=== PATIENT | male | born 1985 | race Caucasian/White ===

== ENCOUNTER 2017-09-06 09:29 | Emergency (ER) | payer SELFPAY ==
[2017-09-06 11:42] VITALS: BP 142/93
--- NOTE | 2017-09-06 11:54 | UC ---
Respiratory Complaint HPI - HPI Summary HPI Summary: Patient urgent care today with 2 days of worsening left ear pain and cough with wheeze - History of Current Complaint Chief Complaint: UCEar Stated Complaint: EAR PAIN, CHEST CONGESTION, COUGH Time Seen by Provider: 09/06/17 11:50 Hx Obtained From: Patient Onset/Duration: Sudden Onset, Lasting Days - 2, Still Present Timing: Constant Severity Initially: Mild Severity Currently: Mild Pain Intensity: 3 Pain Scale Used: 0-10 Numeric Aggravating Factors: Nothing Alleviating Factors: Nothing Associated Signs And Symptoms: Positive: URI, Nasal Congestion - Allergies/Home Medications Allergies/Adverse Reactions: Allergies Allergy/AdvReac Type Severity Reaction Status Date / Time No Known Allergies Allergy Verified 09/06/17 11:41 PMH/Surg Hx/FS Hx/Imm Hx Previously Healthy: Yes - Surgical History Surgical History: None - Family History Known Family History: Positive: None - Social History Occupation: Employed Full-time Lives: With Family Alcohol Use: Weekly Alcohol Amount: 2 times a week Substance Use Type: None Smoking Status (MU): Never Smoked Tobacco Review of Systems Constitutional: Negative Skin: Negative Eyes: Negative ENT: Sore Throat, Ear Ache, Nasal Discharge Respiratory: Cough - Her Cardiovascular: Negative Gastrointestinal: Negative Genitourinary: Negative Motor: Negative Neurovascular: Negative Musculoskeletal: Negative Neurological: Negative Psychological: Negative Is Patient Immunocompromised?: No All Other Systems Reviewed And Are Negative: Yes Physical Exam Triage Information Reviewed: Yes Appearance: Well-Appearing, No Pain Distress, Well-Nourished - Patient was necessarily mesentery with Vital Signs: Initial Vital Signs Temp 97.9 F 09/06/17 11:38 Pulse 88 09/06/17 11:38 Resp 14 09/06/17 11:38 BP 142/93 09/06/17 11:38 Pulse Ox 97 09/06/17 11:38 Vital Signs Reviewed: Yes Eye Exam: Normal Eyes: Positive: Conjunctiva Clear ENT Exam: Normal ENT: Positive: Normal ENT inspection, Hearing grossly normal, Pharynx normal, Nasal congestion, TMs normal - right, TM bulging - left. Negative: Trismus, Muffled voice, Hoarse voice - Day as, Sinus tenderness, Uvula midline Dental Exam: Normal Neck exam: Normal Neck: Positive: Supple, Nontender, No Lymphadenopathy Respiratory Exam: Other Respiratory: Positive: Chest non-tender, No respiratory distress, No accessory muscle use, Wheezing Cardiovascular Exam: Normal Cardiovascular: Positive: RRR, No Murmur, Pulses Normal, Brisk Capillary Refill Musculoskeletal Exam: Normal Musculoskeletal: Positive: Strength Intact, ROM Intact, No Edema Neurological Exam: Normal Neurological: Positive: Alert, Muscle Tone Normal Psychological Exam: Normal Skin Exam: Normal UC Diagnostic Evaluation - Laboratory O2 Sat by Pulse Oximetry: 97 Diagnostic Studies Comment: Influenza a and influenza B are negative, rapid strep is negative Respiratory Course/Dx - Course Course Of Treatment: We'll treat left ear infection with amoxicillin, the bronchospastic cough with wheeze with albuterol increase fluids Tylenol ibuprofen for pain follow up with PCP when necessary - Differential Dx/Diagnosis Provider Diagnoses: Elevated blood pressure without diagnosis of hypertension, Left otitis media, bronchospastic cough Discharge - Sign-Out/Discharge Documenting (check all that apply): Discharge - Discharge Plan Condition: Stable Disposition: HOME Prescriptions: Albuterol HFA INHALER* [Ventolin HFA Inhaler*] 2 puff INH Q4H PRN #1 mdi PRN Reason: cough and wheeze Amoxicillin PO (*) [Amoxicillin 875 MG (*)] 875 mg PO BID #20 tab Patient Education Materials: Ear Infection (ED), Hypertension (ED), Bronchospasm (ED) Referrals: Chandra Pelaez MD [Primary Care Provider] - 2 Weeks - Billing Disposition and Condition Condition: STABLE Disposition: HOME
== END 2017-09-06 12:43 | disposition home or self-care (01) ==
LOC: UCCORT 09:29
DX: H66.92 Otitis media, unspecified, left ear (principal); R05 Cough; R03.0 Elevated blood-pressure reading, without diagnosis of hypertension
CPT/HCPCS: 87502; 87651; 99212; G0463

== ENCOUNTER 2019-05-20 07:32 | Emergency (ER) | payer BC ==
[2019-05-20 07:45] VITALS: BP 139/96
--- NOTE | 2019-05-20 08:41 | UC ---
Ear Complaint HPI - HPI Summary HPI Summary: 33-year-old male comes in with a chief complaint of right posterior chest and right upper quadrant pain. Patient fell after slipping on the ice 2 days ago on May 18, 2019. Had immediate pain right posterior lower chest. Over time the pain has wrapped around the right side of the chest and into the right upper quadrant the abdomen. Patient has been taking ibuprofen which does help some with the pain. Pain is worse with any kind of movement or deep breath. Reports difficulty moving his bowels this morning. He reports it started abdominal because if he tries to strain to move his bowels or even to twist or turn it causes pain. Has not seen any blood in the stool or his urine. He has been able to eat. He has decreased appetite secondary to the pain. - History of Current Complaint Chief Complaint: UCBackPain Stated Complaint: BACK/RIB PAIN Time Seen by Provider: 05/20/19 07:59 Pain Intensity: 5 - Allergies/Home Medications Allergies/Adverse Reactions: Allergies Allergy/AdvReac Type Severity Reaction Status Date / Time No Known Allergies Allergy Verified 05/20/19 07:41 Home Medications: Home Medications Ibuprofen TAB* [Advil TAB*] 600 mg PO ONCE 05/20/19 [History Confirmed 05/20/19] PMH/Surg Hx/FS Hx/Imm Hx Previously Healthy: Yes - Surgical History Surgical History: None - Family History Known Family History: Positive: None - Social History Alcohol Use: Occasionally Alcohol Amount: 2 times a week Substance Use Type: None Smoking Status (MU): Never Smoked Tobacco Review of Systems All Other Systems Reviewed And Are Negative: Yes Constitutional: Positive: Negative Skin: Positive: Negative Eyes: Positive: Negative ENT: Positive: Negative Respiratory: Positive: Other - SEE HPI Cardiovascular: Positive: Chest Pain Gastrointestinal: Positive: Abdominal Pain, Other - SEE HPI Genitourinary: Positive: Negative Motor: Positive: Negative Neurovascular: Positive: Negative Musculoskeletal: Positive: Other: - SEE HPI Neurological: Positive: Negative Psychological: Positive: Negative Is Patient Immunocompromised?: No Physical Exam Triage Information Reviewed: Yes Appearance: Well-Appearing, Well-Nourished, Pain Distress - MILD WITH ROM AND EXAM Vital Signs: Initial Vital Signs Temp 97.4 F 05/20/19 07:42 Pulse 65 05/20/19 07:42 Resp 16 05/20/19 07:42 BP 139/96 05/20/19 07:42 Pulse Ox 100 05/20/19 07:42 Vital Signs Reviewed: Yes Eye Exam: Normal Eyes: Positive: Conjunctiva Clear ENT: Negative: Nasal drainage Neck: Positive: Supple Respiratory: Positive: Lungs clear, Normal breath sounds, No respiratory distress, Other: - Tender to palpation right posterior lower ribs and the tenderness wraps around on the same level of ribs on the right lateral aspect right anterior aspect. Cardiovascular: Positive: RRR Abdomen Description: Positive: Other: - Nontender to palpation left lower and right lower quadrants of the abdomen. Nontender palpation left upper quadrant of the abdomen. Patient is tender in the right upper quadrant and epigastrium which is mild tenderness and it's difficult to determine whether or not the palpation in the right upper quadrant epigastrium is causing pain in the ribs or the abdomen itself. Bowel Sounds: Positive: Present Musculoskeletal: Positive: Strength Intact Neurological: Positive: Alert Psychological: Positive: Age Appropriate Behavior Skin Exam: Normal Ear Complaint Course/Dx - Course Course Of Treatment: Invoice Classification Clerk: Chandra Curtis F ([id number]) Cold Food Packer: SAM ( SAM) Report Date: 05/20/2019 08:45:00 Report Status: Final ====== Start of Report Content Patient Name: SANTANA MAXWELL Medical Record#: [id number] Ordering Physician: Jacob Caro MD Acct.#: [id number] : 10/1985 Age: 33 Sex: M Location: [facility]RG[facility]ARE [facility] Exam Date: 05/20/19812 ADM Status: REG ER Order Information: US ABDOMEN LIMITED Accession Number: [id number] CPT: 15250 INDICATION: Right upper quadrant pain status post fall. COMPARISON: There are no relevant prior studies available for comparison. TECHNIQUE: Multiple real-time images of the abdomen in the right and left upper and lower quadrants to assess for ascites. Additional images were obtained of the liver. FINDINGS: No ascites is visualized. The liver is moderately enlarged spanning 20 cm in craniocaudad dimension and increased in echogenicity. No significant focal abnormality is seen. IMPRESSION: 1. NO EVIDENCE FOR ASCITES. 2. ENLARGED LIVER WITH INCREASED ECHOGENICITY SUGGESTIVE OF FATTY INFILTRATION. NO FOCAL ABNORMALITY IS SEEN. <Electronically signed by Chandra Curtis MD in OV> 05/20/19841 Dictated By: Chandra Curtis MD Dictated Date/Time: 05/20/19837 Transcribed Date/Time: 05/20/19837 Copy to: CC:Chandra Griffin Jr, MD; Jacob Caro MD Imaging - [facility] Imaging - [facility] [address] [place] [address] ph [phone] ph ) ph ([phone]) End of Report Content Invoice Classification Clerk: Chandra Curtis F, ([id number]) Cold Food Packer: SAM, ( NUANCE) Report Date: 05/20/2019 09:24:00 Report Status: Final ====== Start of Report Content Patient Name: SANTANA MAXWELL Medical Record#: [id number] Ordering Physician: Jacob Caro MD Acct.#: [id number] : 10/1985 Age: 33 Sex: M Location: [facility] Exam Date: 05/20/19807 ADM Status: REG ER Order Information: RIBS RT UNI W/PA CH MIN 3 VWS Accession Number: [id number] CPT: 31365 INDICATION: Right rib injury. COMPARISON: There are no relevant prior studies available for comparison. TECHNIQUE: 4 views of the right ribs and a PA view of the chest was obtained. FINDINGS: The ribs are in normal alignment. No fracture is seen. The heart is within normal limits in size. The lungs are clear. There is no evidence for pneumothorax or pleural effusion. IMPRESSION: NO EVIDENCE FOR FRACTURE. IF THE PATIENT'S SYMPTOMS PERSIST RECOMMEND FOLLOW-UP IMAGING. <Electronically signed by Chandra Curtis MD in OV> 05/20/19919 Dictated By: Chandra Curtis MD Dictated Date/Time: 915 Transcribed Date/Time: 05/20/19915 Copy to: CC:Chandra Griffin Jr, MD; Jacob Caro MD Imaging - [facility] Imaging [facility] [address] [address] ph [phone] ph ([phone]) ph ([phone]) End of Report Content ==== Urine did not show any blood. I discussed the x-rays and the ultrasound with the patient. Also discussed the possibility of abdominal trauma and the best way to evaluate that is with CT scan with IV contrast which we do not have access to here in clinic. Plan will be ibuprofen on a regular basis and then Flexeril as needed. Patient's sent home with incentive spirometer. We discussed that if the patient did not improve or if he worsened with shortness of breath or fevers signs of infection feeling lightheaded or spread of abdominal pain that he needed to get reevaluated right away in the emergency department. Otherwise the patient will follow-up his primary care physician. - Differential Dx/Diagnosis Provider Diagnosis: Rib pain on right side, Right upper quadrant abdominal pain Discharge ED - Sign-Out/Discharge Documenting (check all that apply): Patient Departure All imaging exams completed and their final reports reviewed: Yes - Discharge Plan Condition: Stable Disposition: HOME Prescriptions: Cyclobenzaprine TAB* [Flexeril 10 MG TAB*] 10 mg PO TID PRN #15 tab MDD 3 PRN Reason: Pain - Moderate Patient Education Materials: Rib Contusion (ED), Acute Abdominal Pain (ED) Referrals: Chandra Griffin MD [Primary Care Provider] - Additional Instructions: FOLLOW UP WITH YOUR DOCTOR. GO TO THE EMERGENCY DEPARTMENT IF NOT IMPROVING OR WORSE; PAIN, SHORTNESS OF BREATH, FEVER, SIGNS OF INFECTION, ABDOMINAL PAIN, YOU FEEL LIGHTHEADED, BLOOD IN YOUR URINE OR STOOL OR ANY QUESTIONS OR CONCERNS. USE THE INCENTIVE SPIROMETER EVERY 4 HOURS WHILE AWAKE TO HELP AVOID RESPIRATORY INFECTION - Billing Disposition and Condition Condition: STABLE Disposition: Home
== END 2019-05-20 09:48 | disposition home or self-care (01) ==
LOC: UCCORT 07:32
DX: R10.11 Right upper quadrant pain (principal); R07.81 Pleurodynia; R07.9 Chest pain, unspecified; R16.0 Hepatomegaly, not elsewhere classified
CPT/HCPCS: 76705; 81003; 99212; G0463

== ENCOUNTER 2019-08-04 07:07 | Emergency (ER) | payer BC ==
[2019-08-04 07:17] VITALS: BP 139/92
--- NOTE | 2019-08-04 07:24 | UC ---
Ear Complaint HPI - HPI Summary HPI Summary: 33 yo with 4 days of sinus congestion, subjective fever, nasal congestion and cough. Hx of otitis media with mild hearing loss. - History of Current Complaint Chief Complaint: UCRespiratory Stated Complaint: LT EAR PAIN Time Seen by Provider: 08/04/19 07:19 Hx Obtained From: Patient Onset/Duration: Gradual Onset, Lasting Days Severity Initially: Moderate Severity Currently: Moderate Pain Intensity: 4 Aggravating Factors: Nothing Alleviating Factors: OTC Meds Associated Signs/Symptoms: Positive: Hearing Loss, URI Symptoms - Allergies/Home Medications Allergies/Adverse Reactions: Allergies Allergy/AdvReac Type Severity Reaction Status Date / Time No Known Allergies Allergy Verified 08/04/19 07:14 Home Medications: Home Medications Ibuprofen TAB* [Advil TAB*] 400 mg PO ONCE PRN 05/20/19 [History Confirmed 08/03] Amoxicillin PO (*) [Amoxicillin 875 MG (*)] 875 mg PO BID #20 tab 08/04/19 [Rx] PMH/Surg Hx/FS Hx/Imm Hx Previously Healthy: Yes - Surgical History Surgical History: None - Family History Known Family History: Positive: None - parents alive and healthy, states no chronic diseases - Social History Occupation: Employed Full-time Lives: With Family Alcohol Use: Occasionally Alcohol Amount: 2 times a week Substance Use Type: None Smoking Status (MU): Never Smoked Tobacco Review of Systems All Other Systems Reviewed And Are Negative: Yes Constitutional: Positive: Fatigue Skin: Positive: Negative Eyes: Positive: Negative ENT: Positive: Sore Throat, Ear Ache, Nasal Discharge, Sinus Congestion Respiratory: Positive: Cough. Negative: Shortness Of Breath Cardiovascular: Negative: Chest Pain Gastrointestinal: Positive: Negative Genitourinary: Positive: Negative Motor: Positive: Negative Neurovascular: Positive: Negative Musculoskeletal: Positive: Negative Neurological/Mental Status: Positive: Negative Psychological: Positive: Negative Is Patient Immunocompromised?: No Physical Exam Triage Information Reviewed: Yes Appearance: Well-Appearing, Pain Distress - mild Vital Signs: Initial Vital Signs Temp 97.5 F 08/04/19 07:15 Pulse 75 08/04/19 07:15 Resp 17 08/04/19 07:15 BP 139/92 08/04/19 07:15 Pulse Ox 99 08/04/19 07:15 Eyes: Positive: Conjunctiva Clear ENT: Positive: Pharyngeal erythema, TM bulging - left TM dull, red and bulging, with some scarring. right retracted without erythema. Dental Exam: Normal Neck: Positive: Supple, Nontender, No Lymphadenopathy Respiratory: Positive: Lungs clear, Normal breath sounds Cardiovascular: Positive: RRR, No Murmur Musculoskeletal Exam: Normal Neurological Exam: Normal Psychological Exam: Normal Skin Exam: Normal Ear Complaint Course/Dx - Course Course Of Treatment: amoxicillin for treatment of left otitis media. - Differential Dx/Diagnosis Differential Diagnosis/HQI/PQRI: Otitis Media, Perforated TM, Pharyngitis, URI Provider Diagnosis: Left otitis media Discharge ED - Sign-Out/Discharge Documenting (check all that apply): Patient Departure All imaging exams completed and their final reports reviewed: No Studies - Discharge Plan Condition: Good Disposition: HOME Prescriptions: Amoxicillin PO (*) [Amoxicillin 875 MG (*)] 875 mg PO BID #20 tab Patient Education Materials: Ear Infection (ED) Forms: *Work Release Referrals: Chandra Pelaez MD [Primary Care Provider] - Additional Instructions: Please take the full course of antibiotics, with anticipation that ear pain should be decreased by third day of treatment. Use ibuprofen as needed for control of pain. Off work today. - Billing Disposition and Condition Condition: GOOD Disposition: Home
== END 2019-08-04 07:34 | disposition home or self-care (01) ==
LOC: UCCORT 07:07
DX: H66.92 Otitis media, unspecified, left ear (principal); R09.89 Other specified symptoms and signs involving the circulatory and respiratory systems; R09.81 Nasal congestion; J02.9 Acute pharyngitis, unspecified
CPT/HCPCS: 99212; G0463

== ENCOUNTER 2019-09-08 09:14 | Emergency (ER) | payer BC ==
[2019-09-08 09:45] VITALS: BP 133/82
--- NOTE | 2019-09-08 10:12 | UC ---
Throat Pain/Nasal [place] HPI - HPI Summary HPI Summary: 33yo male presenting with sore throat since yesterday. Notes sweats last night. Denies fever. Denies cough and other URI symptoms. States pain radiates to left ear at times and he had an ear infection last month. Notes PND. Took ibuprofen this morning with relief of pain. - History of Current Complaint Chief Complaint: UCGeneralIllness Stated Complaint: ST Hx Obtained From: Patient Pain Intensity: 3 Pain Scale Used: 0-10 Numeric - Allergies/Home Medications Allergies/Adverse Reactions: Allergies Allergy/AdvReac Type Severity Reaction Status Date / Time No Known Allergies Allergy Verified 09/08/19 09:33 Home Medications: Home Medications Ibuprofen TAB* [Advil TAB*] 600 mg PO Q6H PRN 05/20/19 [History Confirmed ] PMH/Surg Hx/FS Hx/Imm Hx - Surgical History Surgical History: None - Family History Known Family History: Positive: None - parents alive and healthy, states no chronic diseases - Social History Alcohol Use: Occasionally Alcohol Amount: 2 times a week Substance Use Type: None Smoking Status (MU): Never Smoked Tobacco Review of Systems All Other Systems Reviewed And Are Negative: Yes Constitutional: Positive: Negative ENT: Positive: Sore Throat, Ear Ache - left. Negative: Nasal Discharge, Sinus Congestion Respiratory: Positive: Negative. Negative: Cough Cardiovascular: Positive: Negative Gastrointestinal: Positive: Negative Musculoskeletal: Positive: Negative. Negative: Myalgia Neurological/Mental Status: Positive: Negative. Negative: Headache Physical Exam - Summary Physical Exam Summary: Vital Signs Reviewed: Yes A+Ox3, no distress, well-appearing Eyes: Conjunctiva Clear ENT: Hearing grossly normal, TM x 2 clear, moist, uvula midline, no exudate, no erythema, +PND Neck: Positive: Supple, no LAD Respiratory: Positive: No respiratory distress, No accessory muscle use + CTA throughout no w/r Cardiovascular: RRR nl s1, s2 no m/r Musculoskeletal Exam: [place] x 4 without difficulty Neurological: Positive: Alert Psychological: Positive: age appropriate behavior Skin: Positive: no rash, no ecchymosis Vital Signs: Initial Vital Signs Temp 98.3 F 09/08/19 09:30 Pulse 67 09/08/19 09:30 Resp 16 09/08/19 09:30 BP 133/82 09/08/19 09:30 Pulse Ox 100 04/16/20 09:30 Lab Results 09/08/19 Range/Units 09:44 Group A Strep Rapid Negative (Negative) Throat Pain/Nasal Course/Dx - Course Course Of Treatment: Negative rapid strep. Discussed likely allergic vs viral etiology of symptoms with patient. Instructed to continue with symptomatic treatment and follow up with pcp if symptoms persist or worsen. Patient voiced understanding and agreed with treatment plan. - Differential Dx/Diagnosis Differential Diagnosis/HQI/PQRI: Pharyngitis, URI Provider Diagnosis: Pharyngitis Discharge ED - Sign-Out/Discharge Documenting (check all that apply): Patient Departure All imaging exams completed and their final reports reviewed: No Studies - Discharge Plan Condition: Stable Disposition: HOME Patient Education Materials: Pharyngitis (ED) Referrals: Chandra Pelaez MD [Primary Care Provider] - If Needed Additional Instructions: As discussed, you tested negative for strep throat today. You may continue with ibuprofen as directed for pain relief. You may use over the counter throat sprays or lozenges for symptomatic relief. Follow up with your primary care provider if symptoms have not improved in 7-10 days. - Billing Disposition and Condition Condition: STABLE Disposition: Home
== END 2019-09-08 10:25 | disposition home or self-care (01) ==
LOC: UCCORT 09:14
DX: J02.9 Acute pharyngitis, unspecified (principal); H92.02 Otalgia, left ear
CPT/HCPCS: 87651; 99211; G0463